=== PATIENT | female | born 1945 | race Caucasian/White ===

== ENCOUNTER → 2023-07-19 10:42 | Outpatient (CLI) | payer MEDICARE, SELFPAY ==
[2023-07-19 19:17] LABS: Hemoglobin A1C% w Est Avg Glu 5.9 % (4.0-6.0)
[2023-07-19 19:24] LABS: Hemoglobin 13.9 g/dL (12.0-16.0); Mean Corpuscular HGB Conc 33.9 % (30-36); Mean Corpuscular Hemoglobin 30.6 PG (26-34); Mean Corpuscular Volume 90.4 fL (80-100); Platelet Count 164 X10^3/uL (150-400); Red Blood Cell Count 4.53 X10^6/uL (4.0-5.2); Red Cell Distribution Width 13.6 % (11.6-14.8); White Blood Cell Count 8.7 X10^3/uL (4.5-11.0)
[2023-07-19 19:48] LABS: Alanine Aminotransferase 18 IU/L (<35); Albumin 4.1 g/dL (3.5-5.0); Alkaline Phosphatase 129 U/L (38-126); Aspartate Aminotransferase 29 IU/L (14-36); Bilirubin Total 1.4 mg/dL (0.2-1.3); Blood Urea Nitrogen 11 mg/dL (7-17); Calcium 9.6 mg/dL (8.4-10.2); Carbon Dioxide 22 mmol/L (22-32); Chloride 104 mmol/L (98-107); Cholesterol 175 mg/dL (140-199); Estimated Glomerular Filt Rate > 60 mL/min (>60); Globulin 4.1 g/dL (1.7-4.1); Glucose 119 mg/dL (80-110); HDL Cholesterol 49 mg/dL (40-60); HEMOLYSIS < 15 (0-50); LDL Cholesterol Calculated 107 mg/dL (<100); Sodium 136 mmol/L (137-145); Total Protein 8.2 g/dL (6.3-8.2); Triglycerides 93 mg/dL (35-150)
[2023-07-19 19:55] LABS: Thyroid Stimulating Hormone 3.57 uIU/mL (0.47-4.68)
[2023-07-19 19:58] LABS: LDL Cholesterol Direct 109 mg/dL (<100); NT-proBNP (BNP-Adult 18+) 620 pg/mL (<450)
== END ==
PROVIDERS: Visit Provider Nurse Practitioner
DX: R06.09 Other forms of dyspnea (principal); R07.2 Precordial pain; E11.9 Type 2 diabetes mellitus without complications
CPT/HCPCS: 80053; 80061; 83036; 83721; 83880; 84443; 85027

== ENCOUNTER 2025-05-25 15:18 | Emergency (ER) | payer MEDICARE, OTHER, SELFPAY ==
[2025-05-25] VITALS (28 sets, daily range): BP systolic 137–203; BP diastolic 70–98; PULSE 69–82; RESP 16; TEMP 36; O2SAT 91–95; BMI 34.3
--- NOTE | 2025-05-25 15:46 | PC.NURSE ---
Given Toradol and Zofran MARKETING PROGRAM COORDINATOR
--- NOTE | 2025-05-25 15:54 | DI.CT.S_ITS ---
PROCEDURE: CT ABDOMEN PELVIS WO CON INDICATIONS: r flank pain TECHNIQUE: CT of the abdomen and pelvis was obtained without intravenous contrast. Coronal and sagittal reformats were performed. For radiation dose reduction, the following was used: automated exposure control, adjustment of mA and/or kV according to patient size. COMPARISON: None. FINDINGS: Image quality: Diagnostic. Lower Chest: Mild cardiomegaly. Calcifications of the mitral valve annulus. Subsegmental atelectasis in the left lung base. ABDOMEN: Liver: No contour-deforming mass. Nodular liver contour. Gallbladder: Post cholecystectomy. Biliary ducts: No biliary dilation. Pancreas: No ductal dilation. Spleen: Size is within normal limits. Adrenal Glands: No adrenal nodules. Kidneys and Ureters: Atrophic right kidney. Minimal right hydroureter. No intrarenal hydronephrosis. Normal size of the left kidney. A 5 mm partially obstructive stone in the right distal ureter (2/106; 586 HU). Stomach and Bowel: Normal colonic caliber, without significant wall thickening. Normal appendix, which courses posteriorly. Diverticulosis without diverticulitis. Peritoneum: No abnormal intraperitoneal fluid. No free air. Ventral Wall: No significant hernia. Abdominal Nodes: No retroperitoneal or mesenteric adenopathy by size criteria. Vessels: Aorta and inferior vena cava are normal in size. PELVIS: Pelvic Organs: Unremarkable. Bladder: Unremarkable. Pelvic Nodes: No enlarged lymph nodes. Miscellaneous: No inguinal hernias are seen. Bones: No aggressive osseous abnormality. Degenerative changes in the superior lumbar spine. IMPRESSION: 1. A partially obstructive 5 mm stone in the right distal ureter results in minimal proximal hydroureter. 2. Asymmetric atrophy of the right kidney which may be secondary to prior infection, inflammation, infarction, amongst other considerations. 3. Nodular liver contour, concerning for cirrhosis. 4. Mild generalized cardiomegaly. Dictated by: Romeo Richardson M.D. on 05/25/2025 at 15:30 Approved by: Romeo Richardson M.D. on 05/25/2025 at 15:35
--- NOTE | 2025-05-25 15:56 | ED.BACK ---
HPI - Back Pain/Injury <Gerardo Parr MD - Last Filed: 05/25/25 15:58> General Chief Complaint: Back Pain/Injury Stated Complaint: right low back pain Time Seen by Provider: 05/25/25 15:23 Source: EMS History of Present Illness HPI Narrative: This is a 80-year-old white female who presents with 4 days of right flank pain is nonradiating. The pain is accompanied by nausea no vomiting or diarrhea no chest pain cough or shortness of breath no abdominal pain no dysuria pyuria or hematuria patient describes the pain simply has pain unprovoked not palliated there is no incontinence of stool or urine no saddle paresthesias no gait ataxia. Related Data Home Medications ?Medication ?Instructions ?Recorded ?Confirmed apixaban 5 mg tablet (Eliquis) 5 mg PO BID 10/25/23 05/25/25 metoprolol succinate 50 mg 75 mg PO BID 10/25/23 05/25/25 tablet,extended release 24 hr verapamil 120 mg tablet,extended 240 mg PO DAILY 10/09/24 05/25/25 release Previous Rx's ?Medication ?Instructions ?Recorded albuterol sulfate 90 mcg/actuation 2 puff inhalation QID PRN 10/25/23 aerosol inhaler shortness of breath or wheezing #8.5 grams oxycodone 5 mg tablet 5 mg PO Q6H PRN pain #10 tabs 05/26/25 Allergies Allergy/AdvReac Type Severity Reaction Status Date / Time chlorpromazine (From Allergy Severe Anaphylaxis Verified 05/25/25 15:23 Thorazine) Review of Systems <Gerardo Parr MD - Last Filed: 05/25/25 15:58> Review of Systems Narrative: GENERAL: Denies chills, fatigue, malaise, fever, sweats. HEENT: Denies sinus pain, ear pain, sore throat, difficulty swallowing, dizziness. RESPIRATORY: Denies dyspnea, cough, wheezing, hemoptysis, sputum. CARDIOVASCULAR: Denies chest pain, palpitations, orthopnea, edema, GASTROINTESTINAL: Denies nausea, vomiting, abdominal pain, diarrhea, constipation, melena. : Denies dysuria, frequency, incontinence, hematuria, urinary retention. MUSCULOSKELETAL: denies weakness, joint pain, or bony pain SKIN: Denies rash, skin lesions, or other NEUROLOGIC: Denies weakness, headache, numbness, change in speech, confusion, seizures, incoordination. PSYCHIATRIC: No concerning psychosocial issues. 12 point review of systems is negative except for those stated above Patient History <Gerardo Parr MD - Last Filed: 05/25/25 15:58> Medical History (Updated 05/26/25 @ 06:30 by Clifton Resendez MD) Asthma (~1945) Allergies (~1945) Mumps Measles Chicken pox Vertigo (~2009) Hearing loss (~2004) Herpes (~1972) Kidney stones (~1998) Atrial fibrillation (~2009) Surgical History (Updated 12/03/23 @ 18:42 by Gail Schuster) Anesthesia History of cholecystectomy (~1976) Family History (Updated 12/03/23 @ 18:45 by Gail Schuster) Father Cancer Mother History of heart disease Grandfather History of heart disease Grandmother No problems noted. Grandfather Cancer Grandmother History of heart disease Social History Smoking Status: Never smoker Smoking Status: Never smoker Exam <Gerardo Parr MD - Last Filed: 05/25/25 15:58> Narrative Exam Narrative: GENERAL: [] year old patient appears stated age. Well-developed patient, in mild distress. HEAD: Atraumatic. Normocephalic. EYES: Pupils equal round and reactive. Extraocular motions intact. No scleral icterus. No injection or drainage. ENT: Nose without bleeding, purulent drainage. Throat without erythema, tonsillar hypertrophy or exudate. Airway patent. NECK: Trachea midline. Non tender CARDIOVASCULAR: Regular rate and rhythm without murmurs, gallops, or rubs. RESPIRATORY: Clear to auscultation. Breath sounds equal bilaterally. No wheezes, rales, or rhonchi. GASTROINTESTINAL: Abdomen soft, non-tender, nondistended. EXTREMITIES: No edema or joint tenderness. BACK: There is right CVA tenderness present NEURO: AOx3. SKIN: No rash or erythema of visible areas Initial Vital Signs Initial Vital Signs: Vital Signs Temperature 96.8 F L 05/25/25 15:25 Pulse Rate 78 05/25/25 15:25 Respiratory Rate 16 05/25/25 15:25 Blood Pressure 203/86 H 05/25/25 15:25 Pulse Oximetry 92 05/25/25 15:25 Oxygen Delivery Method Room Air 05/25/25 15:25 <Clifton Resendez MD - Last Filed: 05/26/25 07:25> Initial Vital Signs Initial Vital Signs: Vital Signs Temperature 96.8 F L 05/25/25 15:25 Pulse Rate 78 05/25/25 15:25 Respiratory Rate 16 05/25/25 15:25 Blood Pressure 203/86 H 05/25/25 15:25 Pulse Oximetry 92 05/25/25 15:25 Oxygen Delivery Method Room Air 05/25/25 15:25 Course <Gerardo Parr MD - Last Filed: 05/25/25 15:58> Orders Ordered: Morphine Sulfate (Morphine 2 Mg/Ml Inj) 2 mg IV Q2HR PRN PRN Reason: Pain, Moderate (4-6) Last Admin: 05/26/25 05:50 Dose: 2 mg Documented By: Admin: 05/25/25 23:56 Dose: 2 mg Documented By: CINDY Discontinued Medications Lactated Ringer's (Lactated Ringers) 500 mls @ 1,000 mls/hr IV BOLUS ONE Stop: 05/25/25 23:00 Last Admin: 05/25/25 23:46 Dose: Not Given Documented By: CINDY Lactated Ringer's (Lactated Ringers) 1,000 mls @ 1,000 mls/hr IV BOLUS ONE Stop: 05/26/25 00:43 Last Infusion: 05/26/25 01:14 Dose: Infused Documented By: Admin: 05/25/25 23:48 Dose: 1,000 mls/hr Documented By: CINDY Lidocaine HCl (Lidocaine 2% (Glydo) 6 Ml Gel) 6 ml TOP NOW ONE Stop: 05/25/25 20:28 Last Admin: 05/25/25 23:36 Dose: Not Given Documented By: CINDY Oxycodone/Acetaminophen (Oxycodone/Apap 5/325 Prepack) 1 bottle MISC DIRECTED ONE Stop: 05/26/25 06:20 Last Admin: 05/26/25 06:44 Dose: Not Given Oxycodone/Acetaminophen (Oxycodone/Apap 5/325 Prepack) 1 bottle MISC DIRECTED ONE Stop: 05/26/25 06:22 Last Admin: 05/26/25 06:44 Dose: 1 bottle Vital Signs Vital signs: Vital Signs - 8 hr 05/25/25 23:30 05/25/25 23:31 05/25/25 23:31 Pulse Rate 69 76 Respiratory Rate Blood Pressure 181/78 H Pulse Oximetry 94 93 05/25/25 23:53 05/25/25 23:53 05/26/25 00:00 Pulse Rate 77 75 Respiratory Rate Blood Pressure 192/81 H Pulse Oximetry 94 95 05/26/25 00:00 05/26/25 00:30 05/26/25 01:00 Pulse Rate 73 72 Respiratory Rate Blood Pressure 188/83 H Pulse Oximetry 95 92 05/26/25 02:00 05/26/25 03:00 05/26/25 03:30 Pulse Rate 72 71 74 Respiratory Rate Blood Pressure Pulse Oximetry 90 L 90 L 93 05/26/25 04:00 05/26/25 04:00 05/26/25 04:30 Pulse Rate 86 76 Respiratory Rate 18 Blood Pressure 172/82 H Pulse Oximetry 94 92 05/26/25 05:00 05/26/25 05:30 05/26/25 06:00 Pulse Rate 75 73 76 Respiratory Rate Blood Pressure Pulse Oximetry 90 L 90 L 94 05/26/25 06:30 Pulse Rate 80 Respiratory Rate Blood Pressure Pulse Oximetry 92 <Clifton Resendez MD - Last Filed: 05/26/25 07:25> Orders Ordered: Morphine Sulfate (Morphine 2 Mg/Ml Inj) 2 mg IV Q2HR PRN PRN Reason: Pain, Moderate (4-6) Last Admin: 05/26/25 05:50 Dose: 2 mg Documented By: Admin: 05/25/25 23:56 Dose: 2 mg Documented By: CINDY Discontinued Medications Lactated Ringer's (Lactated Ringers) 500 mls @ 1,000 mls/hr IV BOLUS ONE Stop: 05/25/25 23:00 Last Admin: 05/25/25 23:46 Dose: Not Given Documented By: CINDY Lactated Ringer's (Lactated Ringers) 1,000 mls @ 1,000 mls/hr IV BOLUS ONE Stop: 05/26/25 00:43 Last Infusion: 05/26/25 01:14 Dose: Infused Documented By: Admin: 05/25/25 23:48 Dose: 1,000 mls/hr Documented By: CINDY Lidocaine HCl (Lidocaine 2% (Glydo) 6 Ml Gel) 6 ml TOP NOW ONE Stop: 05/25/25 20:28 Last Admin: 05/25/25 23:36 Dose: Not Given Documented By: CINDY Oxycodone/Acetaminophen (Oxycodone/Apap 5/325 Prepack) 1 bottle MISC DIRECTED ONE Stop: 05/26/25 06:20 Last Admin: 05/26/25 06:44 Dose: Not Given Oxycodone/Acetaminophen (Oxycodone/Apap 5/325 Prepack) 1 bottle MISC DIRECTED ONE Stop: 05/26/25 06:22 Last Admin: 05/26/25 06:44 Dose: 1 bottle Vital Signs Vital signs: Vital Signs - 8 hr 05/25/25 23:30 05/25/25 23:31 05/25/25 23:31 Pulse Rate 69 76 Respiratory Rate Blood Pressure 181/78 H Pulse Oximetry 94 93 05/25/25 23:53 05/25/25 23:53 05/26/25 00:00 Pulse Rate 77 75 Respiratory Rate Blood Pressure 192/81 H Pulse Oximetry 94 95 05/26/25 00:00 05/26/25 00:30 05/26/25 01:00 Pulse Rate 73 72 Respiratory Rate Blood Pressure 188/83 H Pulse Oximetry 95 92 05/26/25 02:00 05/26/25 03:00 05/26/25 03:30 Pulse Rate 72 71 74 Respiratory Rate Blood Pressure Pulse Oximetry 90 L 90 L 93 05/26/25 04:00 05/26/25 04:00 05/26/25 04:30 Pulse Rate 86 76 Respiratory Rate 18 Blood Pressure 172/82 H Pulse Oximetry 94 92 05/26/25 05:00 05/26/25 05:30 05/26/25 06:00 Pulse Rate 75 73 76 Respiratory Rate Blood Pressure Pulse Oximetry 90 L 90 L 94 05/26/25 06:30 Pulse Rate 80 Respiratory Rate Blood Pressure Pulse Oximetry 92 MDM - Back Pain/Injury <Gerardo Parr MD - Last Filed: 05/25/25 15:58> Lab Data 05/25/25 16:36 05/25/25 16:36 Labs: Lab Results 05/25/25 05/25/25 Range/Units 16:36 20:59 WBC 7.5 (4.5-11.0) X10^3/uL RBC 4.38 (4.0-5.2) X10^6/uL Hgb 13.4 (12.0-16.0) g/dL Hct 39.1 (36-46) % MCV 89.4 (80-100) fL MCH 30.5 (26-34) PG MCHC 34.1 (30-36) % RDW 13.8 (11.6-14.8) % Plt Count 166 (150-400) X10^3/uL Neut % (Auto) 79.4 H (50-75) % Lymph % (Auto) 13.3 L (25-40) % Evangeline % (Auto) 5.9 (3-14) % Eos % (Auto) 0.8 L (2-4) % Baso % (Auto) 0.6 (0-2) % Neut # (Auto) 6000 (7302-5445) /uL Lymph # (Auto) 1000 L (0634-6274) /uL Evangeline # (Auto) 400 (0-900) /uL Eos # (Auto) 100 (0-450) /uL Baso # (Auto) 0 (0-100) /uL Sodium 139 (137-145) mmol/L Potassium 4.1 (3.4-5.1) mmol/L Chloride 103 (98-107) mmol/L Carbon Dioxide 26 (22-32) mmol/L BUN 15 (7-17) mg/dL Creatinine 0.75 (0.52-1.04) mg/dL Estimated GFR > 60 (>60) mL/min BUN/Creatinine Ratio 20.0 (6-22) Glucose 113 H (70-99) mg/dL Calcium 9.1 (8.4-10.2) mg/dL Total Bilirubin 1.4 H (0.2-1.3) mg/dL AST 28 (14-36) IU/L ALT 16 (<35) IU/L Alkaline Phosphatase 120 (38-126) U/L Total Protein 8.2 (6.3-8.2) g/dL Albumin 4.2 (3.5-5.0) g/dL Globulin 4.0 (1.7-4.1) g/dL Albumin/Globulin Ratio 1.1 (1.0-2.8) Urine Color Yellow Urine Appearance Clear Urine pH 6.0 (4.5-8.0) Ur Specific [place] 1.025 (1.000-1.035) Urine Protein Negative (Negative) Urine Glucose (UA) Negative (Negative) g/dL Urine Ketones Trace H (NEGATIVE) Urine Occult Blood 2+ H (Negative) Urine Nitrate Negative (Negative) Urine Bilirubin 1+ H (NEGATIVE) Ur Bilirubin Confirm Negative (Negative) Urine Urobilinogen 1.0 (0.2) E.U./dL Ur Leukocyte Esterase Negative (NEGATIVE) Urine RBC 5-10/hpf H (0-5/HPF) Urine WBC None seen (0-5/HPF) Ur Squamous Epith Cells None seen (0-5/HPF) Urine Bacteria None seen (None) Ur Culture Indicated? Cult not indicated Vol Urine Centrifuged 10ml (spun) <Clifton Resendez MD - Last Filed: 05/26/25 07:25> Lab Data Labs: Lab Results 05/25/25 05/25/25 Range/Units 16:36 20:59 WBC 7.5 (4.5-11.0) X10^3/uL RBC 4.38 (4.0-5.2) X10^6/uL Hgb 13.4 (12.0-16.0) g/dL Hct 39.1 (36-46) % MCV 89.4 (80-100) fL MCH 30.5 (26-34) PG MCHC 34.1 (30-36) % RDW 13.8 (11.6-14.8) % Plt Count 166 (150-400) X10^3/uL Neut % (Auto) 79.4 H (50-75) % Lymph % (Auto) 13.3 L (25-40) % Evangeline % (Auto) 5.9 (3-14) % Eos % (Auto) 0.8 L (2-4) % Baso % (Auto) 0.6 (0-2) % Neut # (Auto) 6000 (4065-9910) /uL Lymph # (Auto) 1000 L (7776-8926) /uL Evangeline # (Auto) 400 (0-900) /uL Eos # (Auto) 100 (0-450) /uL Baso # (Auto) 0 (0-100) /uL Sodium 139 (137-145) mmol/L Potassium 4.1 (3.4-5.1) mmol/L Chloride 103 (98-107) mmol/L Carbon Dioxide 26 (22-32) mmol/L BUN 15 (7-17) mg/dL Creatinine 0.75 (0.52-1.04) mg/dL Estimated GFR > 60 (>60) mL/min BUN/Creatinine Ratio 20.0 (6-22) Glucose 113 H (70-99) mg/dL Calcium 9.1 (8.4-10.2) mg/dL Total Bilirubin 1.4 H (0.2-1.3) mg/dL AST 28 (14-36) IU/L ALT 16 (<35) IU/L Alkaline Phosphatase 120 (38-126) U/L Total Protein 8.2 (6.3-8.2) g/dL Albumin 4.2 (3.5-5.0) g/dL Globulin 4.0 (1.7-4.1) g/dL Albumin/Globulin Ratio 1.1 (1.0-2.8) Urine Color Yellow Urine Appearance Clear Urine pH 6.0 (4.5-8.0) Ur Specific [place] 1.025 (1.000-1.035) Urine Protein Negative (Negative) Urine Glucose (UA) Negative (Negative) g/dL Urine Ketones Trace H (NEGATIVE) Urine Occult Blood 2+ H (Negative) Urine Nitrate Negative (Negative) Urine Bilirubin 1+ H (NEGATIVE) Ur Bilirubin Confirm Negative (Negative) Urine Urobilinogen 1.0 (0.2) E.U./dL Ur Leukocyte Esterase Negative (NEGATIVE) Urine RBC 5-10/hpf H (0-5/HPF) Urine WBC None seen (0-5/HPF) Ur Squamous Epith Cells None seen (0-5/HPF) Urine Bacteria None seen (None) Ur Culture Indicated? Cult not indicated Vol Urine Centrifuged 10ml (spun) Imaging Data CT scan - abdomen/pelvis: Radiologist's Impression: . A partially obstructive 5 mm stone in the right distal ureter results in minimal proximal hydroureter. 2. Asymmetric atrophy of the right kidney which may be secondary to prior infection, inflammation, infarction, amongst other considerations. 3. Nodular liver contour, concerning for cirrhosis. 4. Mild generalized cardiomegaly. MDM Narrative Medical decision making narrative: 80-year-old female comes in with acute right flank pain over the last 4 days. Patient was found to have a partially obstructing 5 mm stone. Patient's pain was controlled here in the ED and given some IV fluids. Patient advised to use pain meds as needed and follow up with Urology if pain continues. Patient can go back to the ER here as well if pain is not controlled. No sign of any infection. Patient also relayed new potential diagnosis of cirrhosis and to follow up with GI. Discharge Plan Departure Patient Disposition: Home Clinical Impression: Kidney stone on right side Cirrhosis Qualifiers: Hepatic cirrhosis type: other cirrhosis Qualified Code(s): K74.69 - Other cirrhosis of liver Instructions: Kidney Stones -- Adult, DI for Cirrhosis Activity Restrictions/Additional Instructions: push fluids and take pain meds as prescribed. Follow up with PCP as planned for GI referral as well. May need to see a urologist if stone does not pass. Come back sooner to ER if pain persists as well. Prescriptions: New oxycodone 5 mg tablet 5 mg PO Q6H PRN (Reason: pain) Qty: 10 0RF No Action Eliquis 5 mg tablet 5 mg PO BID metoprolol succinate 50 mg tablet extended release 24 hr 75 mg PO BID albuterol sulfate 90 mcg/actuation HFA aerosol inhaler 2 puff inhalation QID PRN (Reason: shortness of breath or wheezing) Qty: 8.5 0RF verapamil 120 mg tablet extended release 240 mg PO DAILY Referrals: Arash Teixeira MD [Non-Staff, Internal Medicine] Jeanette Medina PA-C [Primary Care Provider, Medical] Stand Alone Forms: Patient Portal/API
[2025-05-25 16:53] LABS: Add Manual Diff / Slide Review NO; Hematocrit 39.1 % (36-46); Hemoglobin 13.4 g/dL (12.0-16.0); Lymphocytes Absolute Auto 1000 /uL (1100-4500); Mean Corpuscular HGB Conc 34.1 % (30-36); Mean Corpuscular Hemoglobin 30.5 PG (26-34); Mean Corpuscular Volume 89.4 fL (80-100); Platelet Count 166 X10^3/uL (150-400)
[2025-05-25 17:02] LABS: Alanine Aminotransferase 16 IU/L (<35); Albumin 4.2 g/dL (3.5-5.0); Albumin Globulin Ratio 1.1 (1.0-2.8); Alkaline Phosphatase 120 U/L (38-126); Blood Urea Nitrogen 15 mg/dL (7-17); Calcium 9.1 mg/dL (8.4-10.2); Carbon Dioxide 26 mmol/L (22-32); Chloride 103 mmol/L (98-107); Estimated Glomerular Filt Rate > 60 mL/min (>60); Globulin 4.0 g/dL (1.7-4.1); Glucose 113 mg/dL (70-99); HEMOLYSIS < 15 (0-50); Potassium 4.1 mmol/L (3.4-5.1); Sodium 139 mmol/L (137-145); Total Protein 8.2 g/dL (6.3-8.2)
--- NOTE | 2025-05-25 19:56 | PC.NURSE ---
tess placed on pt to obtain urine specimen, asked pt about plans to get home if d/c. pt stated that she was not planning to go home as she thought she would be admitted because she thought something was wrong. pt states she is unable to walk so she can't go home. she will have a ride when she gets back [facility] but [facility] because she is not able to walk to ride in a taxi
[2025-05-25 21:10] LABS: Appearance Urine UA CLEAR; Bilirubin Urine UA 1+ (NEGATIVE); Color Urine UA YELLOW; Glucose Urine UA NEGATIVE (Negative); Ketones Urine UA TRACE (NEGATIVE); Leukocyte Esterase Urine UA NEGATIVE (NEGATIVE); Nitrite Urine UA NEGATIVE (Negative); Occult Blood Urine UA 2+ (Negative); Protein Urine UA NEGATIVE (Negative); Specific Gravity Urine UA 1.025 (1.000-1.035); Urobilinogen Urine UA 1.0 E.U./dL (0.2); pH Urine UA 6.0 (4.5-8.0)
[2025-05-25 21:16] LABS: Culture Indicated Urine Cult Not Indicated; Ictotest Urine Negative (Negative)
[2025-05-25] MEDS: LACTATED RINGERS 1,000 ML 1000 ML IV (23:48)
[2025-05-25] MEDS: MORPHINE 2 MG/ML INJ IV (23:56)
[2025-05-26] VITALS (19 sets, daily range): BP systolic 170–188; BP diastolic 72–83; PULSE 71–88; RESP 16–18; O2SAT 89–95
--- NOTE | 2025-05-26 01:16 | PC.NURSE ---
pt given 500ml LR as per Dr Resendez's original order
[2025-05-26] MEDS: MORPHINE 2 MG/ML INJ IV (05:50)
--- NOTE | 2025-05-26 06:52 | PC.NURSE ---
assisted pt to reposition in on stretcher, explained to pt she was ready for d/c when her arrives
== END 2025-05-26 10:15 | disposition home or self-care (01) ==
PROVIDERS: Emergency Medicine; Emergency Provider Family Medicine; PCP Physician Assistant Medical
DX: N20.0 Calculus of kidney (principal); K74.69 Other cirrhosis of liver; M54.59 Other low back pain; R11.0 Nausea
CPT/HCPCS: 36415; 74176; 80053; 81001; 85025; 96361; 96374; 99283; 99284; J2270